=== PATIENT | male | born 1995 | race Hispanic/Latino ===

== ENCOUNTER 2020-12-03 04:25 | Emergency (ER) | payer OTHER ==
[~2020-12-03] VITALS: Ht 165.1 cm; Wt 88.5 kg
[2020-12-03] MEDS ORDERED: LIDOCAINE HCL 2% LOCAL 20 ML VIAL ONE (05:04)
[2020-12-03] MEDS ORDERED: BACITRACIN ZINC 0.9GM TP ONE (05:32)
[2020-12-03 05:59] VITALS: BP 128/71
== END 2020-12-03 05:58 | disposition home or self-care (01) ==
LOC: FSED 04:50
DX: S51.812A Laceration without foreign body of left forearm, initial encounter (principal); W25.XXXA Contact with sharp glass, initial encounter; Y92.008 Other place in unspecified non-institutional (private) residence as the place of occurrence of the external cause
CPT/HCPCS: 12001; 73110; 99283; J2001